=== PATIENT | male | born 1955 | race Caucasian/White ===

== ENCOUNTER 2017-05-15 16:15 | Emergency (ER) | payer BC ==
[2017-05-15 16:25] VITALS: BP 133/86
[2017-05-15] MEDS ORDERED: Sodium Chloride 0.9% 10 ML Syringe FLUSH PRN (16:33)
[2017-05-15] MEDS ORDERED: Clopidogrel 75 MG Tab PO ONE (16:51)
--- NOTE | 2017-05-15 16:51 | EDM.PDOC ---
ED HPI GENERAL MEDICAL PROBLEM - General Chief Complaint: Chest Pain Stated Complaint: CHEST PAIN SHOOTING PAIN IN L ARM Time Seen by Provider: 05/15/17 16:33 Source of Information: Reports: Patient, RN Notes Reviewed - History of Present Illness INITIAL COMMENTS - FREE TEXT/NARRATIVE: 61-year-old male comes in with symptoms of intermittent chest discomfort last evening and occasionally for the past 2-3 weeks. His had less energy than usual for the last several weeks. He also apparently has been very busy with work, "under a lot of stress". He does have history of quadruple bypass about 2 years ago. He gets his meds mail-order. He states that with his last order either did not get his Plavix or did not get a full supply believes he has been off Plavix for about a week to 10 days. He was also off his blood pressure medicine for a short time but is been back on that now for at least a few days. He has no chest discomfort at this time. He really does not want to be here. It appears that his likely made him come. Left Chest Pain Score (Numeric/FACES): 2 - Related Data Allergies Allergy/AdvReac Type Severity Reaction Status Date / Time No Known Allergies Allergy Verified 05/15/17 16:25 Home Meds: Home Meds Allopurinol [Zyloprim] 100 mg PO QPM 01/16/15 [History] Allopurinol [Zyloprim] 300 mg PO QAM 01/16/15 [History] Aspirin 81 mg PO DAILY 01/16/15 [History] PARoxetine HCl [Paxil] 30 mg PO DAILY 01/16/15 [History] metFORMIN [Glucophage] 1,000 mg PO BID 01/16/15 [History] Clopidogrel [Plavix] 1 tab PO DAILY 02/03/15 [History] Calcium Carbonate 600 mg PO DAILY 02/10/15 [History] Cinnamon Bark [Cinnamon] 1 cap PO DAILY 02/10/15 [History] Krill Oil 500 mg PO DAILY 02/10/15 [History] Lisinopril 5 mg PO DAILY 02/10/15 [History] Ubidecarenone [Co Q-10] 200 mg PO DAILY 02/10/15 [History] Vitamin B Complex [B Complex] 1 each PO DAILY 02/10/15 [History] Cholecalciferol (Vitamin D3) [Vitamin D] 5,000 unit PO DAILY 02/11/15 [History] Ginkgo Biloba 120 mg PO DAILY 02/11/15 [History] Iron 1 tab PO DAILY 02/11/15 [History] Lysine [L-Lysine] 500 mg PO DAILY 02/11/15 [History] Magnesium 200 mg PO DAILY 02/11/15 [History] Metoprolol Tartrate [Lopressor] 25 mg PO BID 02/11/15 [History] Multivitamin [Multivitamins] 1 each PO DAILY 02/11/15 [History] Red Yeast Rice 600 mg PO DAILY 02/11/15 [History] Taurine 1,000 mg PO DAILY 02/11/15 [History] Simvastatin [Zocor] 20 mg PO BEDTIME 03/28/15 [History] Clopidogrel [Plavix] 75 mg PO DAILY #10 tablet 05/15/17 [Rx] Past Medical History Cardiovascular History: Reports: High Cholesterol, Hypertension, [place] Genitourinary History: Reports: Other (See Below) Other Genitourinary History: "sluggish kidney" Musculoskeletal History: Reports: Fracture Other Musculoskeletal History: right wrist fracture Psychiatric History: Reports: Anxiety, Depression Endocrine/Metabolic History: Reports: Diabetes, Type II Dermatologic History: Reports: Eczema - Past Surgical History Cardiovascular Surgical History: Reports: Coronary Artery Bypass Social & Family History - Family History Cardiac: Reports: Hypertension, [place] - Tobacco Use Smoking Status *Q: Never Smoker Years of Tobacco use: 15 Used Tobacco, but Quit: Yes Month Tobacco Last Used: 30 years ago Second Hand Smoke Exposure: No - Caffeine Use Caffeine Use: Reports: Coffee - Alcohol Use Days Per Week of Alcohol Use: 0 - Recreational Drug Use Recreational Drug Use: No ED ROS GENERAL - Review of Systems Review Of Systems: See Below Constitutional: Denies: Fever, Chills, Diaphoresis HEENT: Reports: No Symptoms Respiratory: Reports: Shortness of Breath (with exertion) Cardiovascular: Reports: Chest Pain (last evening and intermittently for the last 2-3 weeks, on), Dyspnea on Exertion, Lightheadedness (occasional). Denies : Palpitations GI/Abdominal: Denies: Abdominal Pain, Nausea, Vomiting Musculoskeletal: Denies: Neck Pain, Shoulder Pain, Arm Pain, Back Pain Skin: Reports: No Symptoms Neurological: Reports: Dizziness. Denies: Trouble Speaking, Difficulty Walking , Weakness ED EXAM, GENERAL - Physical Exam Exam: See Below General Appearance: Alert, No Apparent Distress Eye Exam: Bilateral Eye: PERRL Throat/Mouth: Normal Inspection, Normal Oropharynx Head: Atraumatic. No: Facial Swelling Neck: Supple, Full Range of Motion, Other (no JVD) Respiratory/Chest: No Respiratory Distress, Lungs Clear, Normal Breath Sounds, Other (he does have some tenderness of the left mid lateral student sternal border which he states he does have an has had chronically since his open heart surgery) Cardiovascular: Regular Rate, Rhythm GI/Abdominal: Soft, Non-Tender Extremities: Normal Inspection, Normal Range of Motion. No: Pedal Edema, Leg Pain, Increased Warmth, Redness Neurological: Alert, Oriented, No Motor/Sensory Deficits Skin Exam: Warm, Dry, Normal Color EKG INTERPRETATION EKG Date: 05/15/17 Rhythm: NSR Rate (Beats/Min): 72 [place]: Normal P-Wave: Present QRS: Other (Q waves inferior leads) ST-T: Normal Course - Vital Signs Last Recorded V/S: Last Vital Signs Temp 96.9 F 05/15/17 16:23 Pulse 75 05/15/17 16:23 Resp 16 05/15/17 16:23 BP 133/86 05/15/17 16:23 Pulse Ox 95 05/15/17 16:23 - Orders/Labs/Meds Orders: Active Orders 24 hr Category Date Time Status EKG 12 Lead [EKG Documentation Completion] [RC] STAT Care 05/15/17 16:34 Active Peripheral IV Care [RC] . DIRECTED Care 05/15/17 16:35 Active Chest 1V Frontal [CR] Stat Exams 05/15/17 16:34 Taken Peripheral IV Insertion Adult [OM.PC] Stat Oth 05/15/17 16:34 Ordered Labs: Laboratory Tests 05/15/17 05/15/17 Range/Units 16:45 16:45 WBC 6.93 (4.23-9.07) K/mm3 RBC 4.37 L (4.63-6.08) M/mm3 Hgb 12.9 L (13.7-17.5) gm/L Hct 38.0 L (40.1-51.0) % MCV 87.0 (79.0-92.2) fl MCH 29.5 (25.7-32.2) pg MCHC 33.9 (32.2-35.5) g/dl RDW Std Deviation 43.3 (35.1-43.9) fL Plt Count 221 (163-337) K/mm3 MPV 11.1 (9.4-12.3) fl Neut % (Auto) 58.7 (34.0-67.9) % Lymph % (Auto) 28.0 (21.8-53.1) % [place] % (Auto) 11.3 (5.3-12.2) % Eos % (Auto) 1.6 (0.8-7.0) Baso % (Auto) 0.3 (0.1-1.2) % Neut # (Auto) 4.07 (1.78-5.38) K/mm3 Lymph # (Auto) 1.94 (1.32-3.57) K/mm3 [place] # (Auto) 0.78 (0.30-0.82) K/mm3 Eos # (Auto) 0.11 (0.04-0.54) K/mm3 Baso # (Auto) 0.02 (0.01-0.08) K/mm3 Sodium 141 (136-145) mEq/L Potassium 3.9 (3.5-5.1) mEq/L Chloride 104 (98-107) mEq/L Carbon Dioxide 27 (21-32) mEq/L Anion Gap 13.9 (5-15) BUN 10 (7-18) mg/dL Creatinine 0.9 (0.7-1.3) mg/dL Est Cr Clr Drug Dosing 77.78 mL/min Estimated GFR (MDRD) > 60 (>60) mL/min BUN/Creatinine Ratio 11.1 L (14-18) Glucose 110 (80-115) mg/dL Calcium 9.6 (8.5-10.1) mg/dL Total Bilirubin 0.5 (0.2-1.0) mg/dL AST 34 (15-37) U/L ALT 79 H (16-63) U/L Alkaline Phosphatase 93 (46-116) U/L Troponin I < 0.017 (0.00-0.056) ng/mL Total Protein 8.0 (6.4-8.2) g/dl Albumin 4.1 (3.4-5.0) g/dl Globulin 3.9 gm/dL Albumin/Globulin Ratio 1.1 (1-2) Meds: Medications Discontinued Medications Generic Name Dose Route Start Last Admin Trade Name Ernesto PRN Reason Stop Dose Admin Clopidogrel Bisulfate 75 mg 05/15/17 16:51 05/15/17 17:01 Plavix PO 05/15/17 16:52 75 mg ONETIME ONE Administration Sodium Chloride 10 ml 05/15/17 16:33 05/15/17 17:01 Saline Flush FLUSH 10 ml ASDIRECTED PRN Administration Keep Vein Open - Re-Assessments/Exams Free Text/Narrative Re-Assessment/Exam: 05/15/17 19:52 troponin came back normal. Labs otherwise normal. Chest x-ray looked good. Pain pain-free while here in the ED. I Suggested that we hold him for 2 or 3 hour repeat troponin check. However he was very anxious to leave, wanted to go home in a major way, not willing to stay for repeat troponin. I did write a prescription to get him back on the Plavix. We did give a dose of Plavix while awaiting lab work. Remained in sinus rhythm, no ectopy. Vitals remained stable. Discharge instructions as documented Departure - Departure Time of Disposition: 18:13 Disposition: Home, Self-Care 01 Condition: Fair Clinical Impression: Atypical chest pain Prescriptions: Clopidogrel [Plavix] 75 mg PO DAILY #10 tablet Instructions: Chest Wall Pain, [id number] Referrals: Edwina Johnson MD [Primary Care Provider] - Forms: ED Department Discharge Additional Instructions: get back on the Plavix 75 mg daily as previously prescribed, continue daily baby aspirin and other medications as prescribed, [facility] tomorrow morning, try get a an appointment to see safety engineer as soon as possible. Return to ED if symptoms worsening in any way. - My Orders Last 24 Hours: My Active Orders 05/15/17 16:34 EKG 12 Lead [EKG Documentation Completion] [RC] STAT Chest 1V Frontal [CR] Stat Peripheral IV Insertion Adult [OM.PC] Stat 05/15/17 16:35 Peripheral IV Care [RC] . DIRECTED - Assessment/Plan Last 24 Hours: My Active Orders 05/15/17 16:34 EKG 12 Lead [EKG Documentation Completion] [RC] STAT Chest 1V Frontal [CR] Stat Peripheral IV Insertion Adult [OM.PC] Stat 05/15/17 16:35 Peripheral IV Care [RC] . DIRECTED
--- NOTE | 2017-05-16 12:54 | CR ---
Chest: Portable view of the chest was obtained. Comparison: Previous chest x-ray of 05/31/16. Heart size appears within normal limits for portable technique. Mild tortuosity of the thoracic aorta is seen. Sternotomy is noted. Lungs are clear. Bony structures are grossly intact. Impression: 1. Nothing acute is identified on portable chest x-ray. Diagnostic code #2
== END 2017-05-15 18:24 | disposition home or self-care (01) ==
LOC: JD.ED 16:15
DX: R07.89 Other chest pain (principal); E78.00 Pure hypercholesterolemia, unspecified; I10 Essential (primary) hypertension; E11.9 Type 2 diabetes mellitus without complications; Z79.84 Long term (current) use of oral hypoglycemic drugs; Z79.899 Other long term (current) drug therapy
CPT/HCPCS: 36415; 71010; 80053; 84484; 85025; 93005; 99285; A9270; J7050; 93010

== ENCOUNTER 2018-10-24 11:29 | Emergency (ER) | payer BC ==
[2018-10-24 11:41] VITALS: BP 125/81
[2018-10-24] MEDS ORDERED: Sodium Chloride 0.9% 1,000 ML IV ONE (12:14)
[2018-10-24] MEDS ORDERED: Ketorolac 30 MG/ML SDV IVPUSH ONE (12:15)
--- NOTE | 2018-10-24 12:20 | EDM.PDOC ---
ED HPI GENERAL MEDICAL PROBLEM - General Chief Complaint: Flank Pain Stated Complaint: KIDNEY PAIN Time Seen by Provider: 10/24/18 11:38 Source of Information: Reports: Patient, Family History Limitations: Reports: No Limitations - History of Present Illness INITIAL COMMENTS - FREE TEXT/NARRATIVE: Pt 63 yo M who comes in today with L flank pain x1.5 hr, radiates to groin area. He states the pain started 3 days ago, but was just having "flare ups" that would last 15-20minutes. Today is the longest his pain has lasted. He tried ibuprofen at home with no relief. He also c/o nausea, LLQ abdominal pain, decreased appetite, distension (chronic per pt). He denies F/C, vomiting, diarrhea, dysuria, hematuria, constipation. He thinks he may have had pain similar to this in the past when he had renal stones back in 2016, but he "doesn 't remember". He states the stones passed on their own, he doesn't remember needing any surgical intervention. PCP is Dr. Edwina Johnson. Treatments ACCOUNTING MANAGER CPA: Reports: NSAIDS Other Treatments ACCOUNTING MANAGER CPA: 1100 Left Flank Pain Score (Numeric/FACES): 10 - Related Data Allergies Allergy/AdvReac Type Severity Reaction Status Date / Time No Known Allergies Allergy Verified 10/24/18 11:36 Home Meds: Home Meds Allopurinol [Zyloprim] 100 mg PO QPM 01/16/15 [History] Allopurinol [Zyloprim] 300 mg PO QAM 01/16/15 [History] Aspirin 81 mg PO DAILY 01/16/15 [History] PARoxetine HCl [Paxil] 30 mg PO DAILY 01/16/15 [History] metFORMIN [Glucophage] 1,000 mg PO BID 01/16/15 [History] Calcium Carbonate 600 mg PO DAILY 02/10/15 [History] Cinnamon Bark [Cinnamon] 1 cap PO DAILY 02/10/15 [History] Lisinopril 5 mg PO DAILY 02/10/15 [History] Vitamin B Complex [B Complex] 1 each PO DAILY 02/10/15 [History] Cholecalciferol (Vitamin D3) [Vitamin D] 5,000 unit PO DAILY 02/11/15 [History] Metoprolol Tartrate [Lopressor] 25 mg PO BID 02/11/15 [History] Multivitamin [Multivitamins] 1 each PO DAILY 02/11/15 [History] Past Medical History HEENT History: Reports: Impaired Vision Cardiovascular History: Reports: High Cholesterol, Hypertension, [place] Respiratory History: Reports: None Gastrointestinal History: Reports: Cholelithiasis Genitourinary History: Reports: Other (See Below) Other Genitourinary History: "sluggish kidney" Musculoskeletal History: Reports: Fracture Other Musculoskeletal History: right wrist fracture Neurological History: Reports: None Psychiatric History: Reports: Anxiety, Depression Endocrine/Metabolic History: Reports: Diabetes, Type II Hematologic History: Reports: None Immunologic History: Reports: None Oncologic (Cancer) History: Reports: None Dermatologic History: Reports: Eczema - Infectious Disease History Infectious Disease History: Reports: None - Past Surgical History Cardiovascular Surgical History: Reports: Coronary Artery Bypass Respiratory Surgical History: Reports: None GI Surgical History: Reports: Cholecystectomy Social & Family History - Family History Family Medical History: Noncontributory Cardiac: Reports: Hypertension, [place] Respiratory: Reports: None GI: Reports: None : Reports: None OBGYN: Reports: None Musculoskeletal: Reports: None Neurological: Reports: None Endocrine/Metabolic: Reports: None Hematologic: Reports: None Immunologic: Reports: None Oncologic: Reports: None - Tobacco Use Smoking Status *Q: Never Smoker - Caffeine Use Caffeine Use: Reports: Coffee - Recreational Drug Use Recreational Drug Use: No ED ROS GENERAL - Review of Systems Review Of Systems: See Below Constitutional: Reports: Decreased Appetite. Denies: Fever, Chills HEENT: Reports: No Symptoms Respiratory: Reports: No Symptoms Cardiovascular: Reports: No Symptoms Endocrine: Reports: No Symptoms GI/Abdominal: Reports: Abdominal Pain (LLQ), Decreased Appetite, Distension ( chronic per pt), Nausea. Denies: Bloody Stool, Constipation, Diarrhea ("soft stool"), Vomiting : Reports: Flank Pain (L side). Denies: Dysuria, Frequency, Hematuria, Incontinence Musculoskeletal: Reports: No Symptoms Skin: Reports: No Symptoms Neurological: Reports: No Symptoms Psychiatric: Reports: No Symptoms Hematologic/Lymphatic: Reports: No Symptoms Immunologic: Reports: No Symptoms ED EXAM, RENAL/ - Physical Exam Exam: See Below Exam Limited By: No Limitations General Appearance: Alert, Mild Distress Eye Exam: Bilateral Eye: EOMI, Normal Inspection, PERRL Ears: Normal External Exam, Normal Canal, Hearing Grossly Normal Nose: Normal Inspection, Normal Mucosa, No Blood Throat/Mouth: Normal Inspection, Normal Lips, Normal Teeth, Normal Gums, Normal Oropharynx, Normal Voice, No Airway Compromise Head: Atraumatic, Normocephalic Neck: Normal Inspection, Supple, Non-Tender, Full Range of Motion Respiratory/Chest: No Respiratory Distress, Lungs Clear, Normal Breath Sounds, No Accessory Muscle Use, Chest Non-Tender Cardiovascular: Normal Peripheral Pulses, Regular Rate, Rhythm, No Edema, No Gallop, No JVD, No Murmur, No Rub GI/Abdominal: Soft, Non-Tender, Pelvis Stable, Distended, Abnormal Bowel Sounds (hyperactive) (Male) Exam: Deferred Rectal (Males) Exam: Deferred Back Exam: Normal Inspection Extremities: Normal Inspection, Normal Range of Motion, Non-Tender, Normal Capillary Refill, No Pedal Edema Psychiatric: Normal Affect, Normal Mood Skin Exam: Warm, Dry, Intact, Normal Color, No Rash Course - Vital Signs Last Recorded V/S: Last Vital Signs Temp 97.3 F 10/24/18 11:39 Pulse 51 L 10/24/18 11:39 Resp 16 10/24/18 11:39 BP 125/81 10/24/18 11:39 Pulse Ox 99 10/24/18 11:39 - Orders/Labs/Meds Labs: Laboratory Tests 10/24/18 10/24/18 10/24/18 Range/Units 12:00 12:00 12:15 WBC 5.69 (4.23-9.07) K/mm3 RBC 4.49 L (4.63-6.08) M/mm3 Hgb 12.8 L (13.7-17.5) gm/L Hct 38.1 L (40.1-51.0) % MCV 84.9 (79.0-92.2) fl MCH 28.5 (25.7-32.2) pg MCHC 33.6 (32.2-35.5) g/dl RDW Std Deviation 41.8 (35.1-43.9) fL Plt Count 181 (163-337) K/mm3 MPV 11.3 (9.4-12.3) fl Neut % (Auto) 68.6 H (34.0-67.9) % Lymph % (Auto) 23.6 (21.8-53.1) % [place] % (Auto) 6.3 (5.3-12.2) % Eos % (Auto) 1.1 (0.8-7.0) Baso % (Auto) 0.2 (0.1-1.2) % Neut # (Auto) 3.91 (1.78-5.38) K/mm3 Lymph # (Auto) 1.34 (1.32-3.57) K/mm3 [place] # (Auto) 0.36 (0.30-0.82) K/mm3 Eos # (Auto) 0.06 (0.04-0.54) K/mm3 Baso # (Auto) 0.01 (0.01-0.08) K/mm3 Sodium 138 (136-145) mEq/L Potassium 4.7 (3.5-5.1) mEq/L Chloride 104 (98-107) mEq/L Carbon Dioxide 23 (21-32) mEq/L Anion Gap 15.7 H (5-15) BUN 17 (7-18) mg/dL Creatinine 1.1 (0.7-1.3) mg/dL Est Cr Clr Drug Dosing 62.03 mL/min Estimated GFR (MDRD) > 60 (>60) mL/min BUN/Creatinine Ratio 15.5 (14-18) Glucose 203 H (80-115) mg/dL Calcium 9.0 (8.5-10.1) mg/dL Total Bilirubin 0.4 (0.2-1.0) mg/dL AST 26 (15-37) U/L ALT 52 (16-63) U/L Alkaline Phosphatase 86 (46-116) U/L C-Reactive Protein < 0.2 (<1.0) mg/dL Total Protein 7.6 (6.4-8.2) g/dl Albumin 3.8 (3.4-5.0) g/dl Globulin 3.8 gm/dL Albumin/Globulin Ratio 1.0 (1-2) Urine Color Yellow (Yellow) Urine Appearance Clear (Clear) Urine pH 5.5 (5.0-8.0) Ur Specific [place] > or = 1.030 (1.005-1.030) Urine Protein 2+ H (Negative) Urine Glucose (UA) Negative (Negative) Urine Ketones Negative (Negative) Urine Occult Blood 3+ H (Negative) Urine Nitrite Negative (Negative) Urine Bilirubin Negative (Negative) Urine Urobilinogen 0.2 (0.2-1.0) Ur Leukocyte Esterase Negative (Negative) Urine RBC >100 H (0-5) /hpf Urine WBC 0-5 (0-5) /hpf Ur Epithelial Cells 0-5 (0-5) /hpf Urine Bacteria Few (FEW) /hpf Urine Mucus Few (FEW) /hpf Meds: Medications Discontinued Medications Generic Name Dose Route Start Last Admin Trade Name Freq PRN Reason Stop Dose Admin Hydromorphone HCl 0.5 mg 10/24/18 13:22 10/24/18 13:25 Dilaudid IVPUSH 10/24/18 13:23 0.5 mg ONETIME ONE Administration Hydromorphone HCl 0.5 mg 10/24/18 15:11 10/24/18 15:13 Dilaudid IVPUSH 10/24/18 15:12 0.5 mg ONETIME ONE Administration Sodium Chloride 1,000 mls @ 999 mls/hr 10/24/18 12:14 10/24/18 12:21 Normal Saline IV 10/24/18 13:14 999 mls/hr ONETIME ONE Administration Ketorolac Tromethamine 30 mg 10/24/18 12:15 10/24/18 12:20 Toradol IVPUSH 10/24/18 12:16 30 mg ONETIME ONE Administration - Re-Assessments/Exams Free Text/Narrative Re-Assessment/Exam: 10/24/18 12:20 I have ordered CBC, CMP, CRP, UA, KUB 10/24/18 13:18 CBC unimpressive except for slight anemia, Hgb 12.8. CMP shows Agap 15.7, Glu 203. CRP <0.2 UA shows 3+ occult blood. KUB reviewed by Dr. Estrada and myself, there does seem to be a possible stone in the LLQ. Will await formal radiology report. 10/24/18 15:07 CT formal report back and does show kidney stone: 1. Mildly prominent left ureter caused by an obstructing stone within the distal left ureter projecting within the bladder measuring 4.8 mm. This is very close to passing into the bladder. 2. One or 2 small nonobstructing calculi within the right kidney. 3. Other incidental findings. Departure - Departure Time of Disposition: 15:08 Disposition: Home, Self-Care 01 Condition: Fair Clinical Impression: Renal stone - Discharge Information *PRESCRIPTION DRUG MONITORING PROGRAM REVIEWED*: Not Applicable *COPY OF PRESCRIPTION DRUG MONITORING REPORT IN PATIENT WILMAR: Not Applicable Instructions: Kidney Stones, [id number] Referrals: Edwina Johnson MD [Primary Care Provider] - Forms: ED Department Discharge Additional Instructions: You were seen in the ED today for back pain. Your lab work was unremarkable, but your urine analysis did show some blood and the Xray and CT abdomen confirmed that you do have a kidney stone measuring 4.8cm. This may or may not pass on its own. It is recommended you follow up with your Primary care provider on Monday and follow up with urologist- we will set up appointment for urologist for you. You will be sent home with pain medication and strainer in the meantime. Do not drive or operate any machinery while taking this medication as it does cause motor and cognitive impairment. Please return to ED if new or worsening symptoms.
[2018-10-24] MEDS ORDERED: HYDROmorphone 1 MG/ML Syringe IVPUSH ONE ×2 (13:22→15:11)
--- NOTE | 2018-10-24 14:17 | CR ---
Abdomen: Supine view of the abdomen was obtained. Comparison: No previous study. Bowel gas pattern is normal. Surgical clips are seen from prior cholecystectomy. Calcifications are noted within the left pelvis most likely due to phleboliths. Minimal degenerative change is noted within the spine. Additional surgical clips are seen within the left upper abdomen. Impression: 1. Incidental findings. Diagnostic code #2
--- NOTE | 2018-10-24 14:59 | CT ---
CT abdomen and pelvis Technique: Multiple axial sections were obtained from above the dome of the diaphragm inferiorly through the pubic symphysis. Intravenous and oral contrast was not utilized. Study has been performed as a ureteral stone protocol. Comparison: No prior CT abdomen or pelvis exam is available. Findings: One and possibly 2 small nonobstructing calculi are seen within the right kidney measuring less than 5 mm. Left kidney shows no abnormal calcifications. Left ureter is dilated down to the UVJ. Calcification is projected within the bladder at the UVJ measuring about 4.8 mm compatible with obstructing stone which is very close to passing into the bladder. No other abnormal calcifications are seen. Visualized lung bases shows nothing acute. Noncontrast appearance of the liver shows an incidental cyst within the dome of the right lobe measuring 3.0 cm. Spleen appears within normal limits. Adrenal glands show no nodule. Pancreas is unremarkable. Surgical clips are seen from prior cholecystectomy. Aorta shows no aneurysm. Atherosclerotic calcification is seen within the aorta and iliac vessels. No retroperitoneal adenopathy or mesenteric abnormalities are seen. No pelvic mass or adenopathy is seen. Appendix not visualized with certainty. No free fluid or inflammatory changes seen. Bone window settings were reviewed which appear within normal limits for the patient's age. Impression: 1. Mildly prominent left ureter caused by an obstructing stone within the distal left ureter projecting within the bladder measuring 4.8 mm. This is very close to passing into the bladder. 2. One or 2 small nonobstructing calculi within the right kidney. 3. Other incidental findings. Diagnostic code #3
== END 2018-10-24 15:56 | disposition home or self-care (01) ==
LOC: JD.ED 11:29
DX: N20.2 Calculus of kidney with calculus of ureter (principal); E78.00 Pure hypercholesterolemia, unspecified; I10 Essential (primary) hypertension; I25.2 Old myocardial infarction; E11.9 Type 2 diabetes mellitus without complications; F41.9 Anxiety disorder, unspecified; F32.9 Major depressive disorder, single episode, unspecified; Z79.899 Other long term (current) drug therapy; Z79.84 Long term (current) use of oral hypoglycemic drugs
CPT/HCPCS: 36415; 74018; 74176; 80053; 81001; 85025; 86140; 96361; 96374; 96375; 96376; 99284; J1170; J1885; J7040

== ENCOUNTER 2021-01-04 13:28 | Emergency (ER) | payer MEDICARE, OTHER ==
[2021-01-04] MEDS ORDERED: Sodium Chloride 0.9% 1,000 ML IV ONE (13:52)
[2021-01-04] MEDS ORDERED: HYDROmorphone 0.5 MG/0.5 ML Syringe IVPUSH ONE (13:52)
[2021-01-04] MEDS ORDERED: Ondansetron 4 MG/2 ML SDV IVPUSH ONE (13:52)
--- NOTE | 2021-01-04 13:53 | EDM.PDOC ---
ED HPI GENERAL MEDICAL PROBLEM - General Chief Complaint: Flank Pain Stated Complaint: KIDNEY STONE Time Seen by Provider: 01/04/21 13:43 Source of Information: Reports: Patient History Limitations: Reports: No Limitations, Other (ED vital signs reveal a temp of 96.2, pulse of 65, respiratory rate of 20, blood pressure 117/69, pulse ox 95% on room air.) - History of Present Illness INITIAL COMMENTS - FREE TEXT/NARRATIVE: 65-year-old male presents the emergency department today with complaints of right flank pain. Patient states he does have a history of kidney stones in the past and this feels similar to kidney stone. He states he was seen by his primary care provider, Dr. Edwina Johnson, in the clinic on Monday and had an MRI done which showed a 1.5 cm stone. At that time he was not having much pain so he was not prescribed any medications. He states he woke this morning with severe right flank pain which wraps around his abdomen and radiates into his right scrotum. He denies any urinary symptoms. He denies any hesitancy and he denies any mandeep red blood noted in his urine. He states he has had nausea and dry heaves which started this morning. He denies any fever or chills. He denies any headache cough or shortness of breath. He denies any diarrhea. - Related Data Allergies Allergy/AdvReac Type Severity Reaction Status Date / Time No Known Allergies Allergy Verified 10/24/18 11:36 Home Meds: Home Meds Allopurinol [Zyloprim] 100 mg PO QPM 01/16/15 [History] Allopurinol [Zyloprim] 300 mg PO QAM 01/16/15 [History] Aspirin 81 mg PO DAILY 01/16/15 [History] PARoxetine HCL [Paxil] 30 mg PO DAILY 01/16/15 [History] metFORMIN [Glucophage] 1,000 mg PO BID 01/16/15 [History] Calcium Carbonate 600 mg PO DAILY 02/10/15 [History] Cinnamon Bark [Cinnamon] 1 cap PO DAILY 02/10/15 [History] Lisinopril 5 mg PO DAILY 02/10/15 [History] Vitamin B Complex [B Complex] 1 each PO DAILY 02/10/15 [History] Cholecalciferol (Vitamin D3) [Vitamin D] 5,000 unit PO DAILY 02/11/15 [History] Metoprolol Tartrate [Lopressor] 25 mg PO BID 02/11/15 [History] Multivitamin [Multivitamins] 1 each PO DAILY 02/11/15 [History] Sulfamethoxazole/Trimethoprim [Bactrim Ds Tablet] 1 each PO BID #20 tablet 01/04/21 [Rx] Past Medical History HEENT History: Reports: Impaired Vision Cardiovascular History: Reports: High Cholesterol, Hypertension, [place] Respiratory History: Reports: None Gastrointestinal History: Reports: Cholelithiasis Genitourinary History: Reports: Other (See Below) Other Genitourinary History: "sluggish kidney" Musculoskeletal History: Reports: Fracture Other Musculoskeletal History: right wrist fracture Neurological History: Reports: None Psychiatric History: Reports: Anxiety, Depression Endocrine/Metabolic History: Reports: Diabetes, Type II Hematologic History: Reports: None Immunologic History: Reports: None Oncologic (Cancer) History: Reports: None Dermatologic History: Reports: Eczema - Infectious Disease History Infectious Disease History: Reports: None - Past Surgical History Cardiovascular Surgical History: Reports: Coronary Artery Bypass Respiratory Surgical History: Reports: None GI Surgical History: Reports: Cholecystectomy Social & Family History - Family History Family Medical History: No Pertinent Family History Cardiac: Reports: Hypertension, [place] Respiratory: Reports: None GI: Reports: None : Reports: None OBGYN: Reports: None Musculoskeletal: Reports: None Neurological: Reports: None Endocrine/Metabolic: Reports: None Hematologic: Reports: None Immunologic: Reports: None Oncologic: Reports: None - Caffeine Use Caffeine Use: Reports: Coffee ED ROS GENERAL - Review of Systems Review Of Systems: Comprehensive ROS is negative, except as noted in HPI. ED EXAM, RENAL/ - Physical Exam Exam: See Below Exam Limited By: No Limitations General Appearance: Alert, WD/WN, Moderate Distress Ears: Normal External Exam, Hearing Grossly Normal Nose: Normal Inspection Throat/Mouth: Normal Inspection, Normal Lips, Normal Voice, No Airway Compromise Head: Atraumatic Neck: Normal Inspection, Supple Respiratory/Chest: No Respiratory Distress, Lungs Clear, Normal Breath Sounds, No Accessory Muscle Use, Chest Non-Tender Cardiovascular: Normal Peripheral Pulses, Regular Rate, Rhythm GI/Abdominal: Normal Bowel Sounds, Soft, Tender (Right upper and lower quadrant) (Male) Exam: Deferred Rectal (Males) Exam: Deferred Back Exam: Normal Inspection Extremities: Normal Inspection Neurological: Alert, Oriented, Normal Cognition Psychiatric: Normal Affect, Normal Mood Skin Exam: Warm, Intact, No Rash, Diaphoretic, Pallor Lymphatic: No Adenopathy Course - Vital Signs Text/Narrative:: Patient presents with right flank pain that was diagnosed as a 1.5 cm stone on Monday by his primary care provider in the clinic. States that the pain at that time was not that severe however he woke this morning and pain is very severe. He presents to the ER with complaints of right flank pain which wraps around his right abdomen and radiates into his right scrotum. States he has had nausea and dry heaves however no vomiting. Patient is in a significant amount of distress and is diaphoretic and slightly pale. He is requesting pain medication. I have ordered labs including a CBC, CMP, urinalysis with micro and culture if warranted. He will also receive a CT of the abdomen and pelvis without contrast stone protocol. I have also ordered for him to receive 1 L of normal saline, Dilaudid and Zofran. Last Recorded V/S: Last Vital Signs Temp 96.6 F L 01/04/21 14:15 Pulse 65 01/04/21 13:42 Resp 20 01/04/21 13:42 BP 117/69 01/04/21 13:42 Pulse Ox 95 01/04/21 13:42 - Orders/Labs/Meds Labs: Laboratory Tests 01/04/21 01/04/21 01/04/21 Range/Units 13:45 13:45 13:52 WBC 9.15 H (4.23-9.07) K/mm3 RBC 4.34 L (4.63-6.08) M/mm3 Hgb 12.4 L (13.7-17.5) gm/dl Hct 37.3 L (40.1-51.0) % MCV 85.9 (79.0-92.2) fl MCH 28.6 (25.7-32.2) pg MCHC 33.2 (32.2-35.5) g/dl RDW Std Deviation 42.1 (35.1-43.9) fL Plt Count 186 (163-337) K/mm3 MPV 11.2 (9.4-12.3) fl Neut % (Auto) 63.6 (34.0-67.9) % Lymph % (Auto) 28.5 (21.8-53.1) % [place] % (Auto) 6.8 (5.3-12.2) % Eos % (Auto) 0.8 (0.8-7.0) Baso % (Auto) 0.1 (0.1-1.2) % Neut # (Auto) 5.82 H (1.78-5.38) K/mm3 Lymph # (Auto) 2.61 (1.32-3.57) K/mm3 Benzie # (Auto) 0.62 (0.30-0.82) K/mm3 Eos # (Auto) 0.07 (0.04-0.54) K/mm3 Baso # (Auto) 0.01 (0.01-0.08) K/mm3 Sodium 140 (136-145) mEq/L Potassium 4.1 (3.5-5.1) mEq/L Chloride 103 (98-107) mEq/L Carbon Dioxide 24 (21-32) mEq/L Anion Gap 17.1 H (5-15) BUN 18 (7-18) mg/dL Creatinine 1.3 (0.7-1.3) mg/dL Est Cr Clr Drug Dosing TNP Estimated GFR (MDRD) 55 (>60) mL/min BUN/Creatinine Ratio 13.8 L (14-18) Glucose 212 H (70-99) mg/dL Calcium 8.6 (8.5-10.1) mg/dL Magnesium 2.0 (1.8-2.4) mg/dL Total Bilirubin 0.5 (0.2-1.0) mg/dL AST 25 (15-37) U/L ALT 50 (16-63) U/L Alkaline Phosphatase 61 (46-116) U/L C-Reactive Protein <0.2 (<1.0) mg/dL Total Protein 7.4 (6.4-8.2) g/dl Albumin 4.0 (3.4-5.0) g/dl Globulin 3.4 gm/dL Albumin/Globulin Ratio 1.2 (1-2) Urine Color Yellow (Yellow) Urine Appearance Clear (Clear) Urine pH 6.0 (5.0-8.0) Ur Specific [place] > or = 1.030 (1.005-1.030) Urine Protein 3+ H (Negative) Urine Glucose (UA) Negative (Negative) Urine Ketones Negative (Negative) Urine Occult Blood 3+ H (Negative) Urine Nitrite Negative (Negative) Urine Bilirubin Negative (Negative) Urine Urobilinogen 0.2 (0.2-1.0) Ur Leukocyte Esterase Negative (Negative) U Hyaline Cast (Auto) 0-5 (0-5) /lpf Urine RBC >100 H (0-5) /hpf Urine WBC 0-5 (0-5) /hpf Ur Squamous Epith Cells 0-5 (0-5) /hpf Amorphous Sediment Few H (NOT SEEN) /hpf Urine Bacteria Moderate H (FEW) /hpf Urine Mucus Moderate H (FEW) /hpf Meds: Medications Discontinued Medications Generic Name Dose Route Start Last Admin Trade Name Freq PRN Reason Stop Dose Admin Hydromorphone HCl 0.5 mg 01/04/21 13:52 01/04/21 14:02 Hydromorphone 0.5 Mg/0.5 Ml Syringe IVPUSH 01/04/21 13:53 0.5 mg ONETIME ONE Administration Sodium Chloride 1,000 mls @ 999 mls/hr 01/04/21 13:52 01/04/21 14:01 Normal Saline IV 01/04/21 14:52 999 mls/hr ONETIME ONE Administration Ondansetron HCl 4 mg 01/04/21 13:52 01/04/21 14:02 Ondansetron 4 Mg/2 Ml Sdv IVPUSH 01/04/21 13:53 4 mg ONETIME ONE Administration - Re-Assessments/Exams Free Text/Narrative Re-Assessment/Exam: 01/04/21 14:29 Hematology reveals a WBC of 9.15, hemoglobin 12.4, hematocrit 37.3, platelet count 186, chemistry reveals a sodium of 140, potassium 4.1, carbon dioxide 24, anion gap 17.1, BUN 18, creatinine 1.3, glucose 212, magnesium 2.0, C-reactive protein less than 0.2, Urinalysis reveals 3+ protein, 3+ occult blood, greater than 100 RBC, few amorphous sediment, moderate urine bacteria, moderate urine mucus. 01/04/21 15:10 CT scan of the abdomen and pelvis radiologist impression: 1. 1.4 cm calcification within the right renal pelvis which is unchanged in position from previous CT scan. Patient states he has an appointment scheduled with , urologist in [facility], on afternoon. I will discharge to home with a prescription for Bactrim DS. I am slightly concerned that patient could develop a pyelonephritis as his white count is slightly elevated as well as having moderate bacteria in his urine. Patient states that his pain has completely resolved. We will let him receive the remainder of his IV fluids and then be discharged home. Departure - Departure Time of Disposition: 15:21 Disposition: Home, Self-Care 01 Clinical Impression: Renal stone - Discharge Information Prescriptions: Sulfamethoxazole/Trimethoprim [Bactrim Ds Tablet] 1 each PO BID #20 tablet Instructions: Kidney Stones, [id number] Referrals: Edwina Johnson MD [Primary Care Provider] - Forms: ED Department Discharge Additional Instructions: You were seen in the ED today with complaints of right flank pain. Labs were completed along with a ct scan which showed that you have a 1.4 cm stone in your right kidney. Your WBC was slightly elevated and there was bacteria in your urine. Due to these 2 things, I am going to treat with antibiotics as it is very possible you could develop a kidney infection. You will take Bactrim DS 1 tab twice daily for 10 days. I have sent a prescription for this antibiotic to your pharmacy. You stated you have an appointment set up with a urologist in 3 days time. Should your condition worsen or change, such as developing fever, chills, nausea, vomiting or your flank pain returns. You need to be reevaluated in the emergency department or by your primary care provider. Sepsis Event Note (ED) - Focused Exam Vital Signs: Vital Signs Temp Pulse Resp BP Pulse Ox 01/04/21 14:15 96.6 F L 01/04/21 13:42 96.2 F L 65 20 117/69 95
[2021-01-04 14:22] VITALS: BP 117/69; PULSE 65
--- NOTE | 2021-01-04 14:53 | CT ---
CT abdomen and pelvis Technique: Multiple axial sections were obtained from below the top of the liver inferiorly through the pubic symphysis. Intravenous and oral contrast was not utilized. Reconstructed coronal and sagittal images were obtained. Comparison: Prior CT abdomen and pelvis study of 01/01/21. Findings: Visualized lung bases show nothing acute. Dome of the right lobe of the liver contains a stable cyst. Liver is otherwise unremarkable. Spleen size is normal. Adrenal glands show no nodule. Pancreas is within normal limits. Surgical clips are seen from prior cholecystectomy. Abdominal aorta shows atherosclerotic change which continues into the iliac vessels with no aneurysmal dilatation. No retroperitoneal adenopathy or mesenteric abnormalities are seen. No pelvic mass or adenopathy is seen. Appendix is not visualized with certainty. Stable calcification is seen within the right renal pelvis which is unchanged in position. This finding measures approximately 1.4 cm. No ureteral dilatation or ureteral stone is seen. No bladder calculi are seen. Bone window settings were obtained which show minimal degenerative change scattered within the spine. No acute osseous abnormality is appreciated. Impression: 1. 1.4 cm calcification within the right renal pelvis which is unchanged in position from previous CT exam. 2. Other findings as noted above which are believed to be incidental. Diagnostic code #3
== END 2021-01-04 15:50 | disposition home or self-care (01) ==
LOC: JD.ED 13:28
DX: N20.0 Calculus of kidney (principal); E78.00 Pure hypercholesterolemia, unspecified; I10 Essential (primary) hypertension; I25.2 Old myocardial infarction; E11.9 Type 2 diabetes mellitus without complications; Z79.82 Long term (current) use of aspirin; Z79.899 Other long term (current) drug therapy; Z95.1 Presence of aortocoronary bypass graft
CPT/HCPCS: 36415; 74176; 80053; 81001; 83735; 85025; 86140; 96374; 96375; 99284; J1170; J2405; J7030

== ENCOUNTER 2021-01-17 10:14 | Emergency (ER) | payer MEDICARE, OTHER ==
[2021-01-17 10:26] VITALS: BP 160/91; PULSE 56
[2021-01-17] MEDS ORDERED: HYDROmorphone 1 MG/ML Syringe IVPUSH ONE (10:43)
[2021-01-17] MEDS ORDERED: Ondansetron 4 MG/2 ML SDV IVPUSH ONE (10:44)
[2021-01-17] MEDS ORDERED: Ketorolac 30 MG/ML SDV IVPUSH SCH (10:45)
[2021-01-17] MEDS ORDERED: Dextrose 5%-0.9% NaCl 1,000 ML IV SCH (10:45)
--- NOTE | 2021-01-17 10:50 | EDM.PDOC ---
ED HPI GENERAL MEDICAL PROBLEM - General Chief Complaint: Flank Pain Stated Complaint: KIDNEY PAIN Time Seen by Provider: 01/17/21 10:40 Source of Information: Reports: Patient History Limitations: Reports: No Limitations - History of Present Illness INITIAL COMMENTS - FREE TEXT/NARRATIVE: 65-year-old male presents to the ED with acute on status severe right flank pain rating down to the right groin. It is primarily in his right flank. He states it was there when he woke up around 0600 hrs. this morning. Associated diaphoresis, nausea without vomiting. Patient underwent lithotripsy for a 1.4 cm stone which was lodged in the right renal pelvis for the last several weeks. It has been giving him intermittent right flank pain and renal colic. He underwent lithotripsy on January 15 by urologist in [place] with stent placement. Has had pain since leaving the hospital but not near as severe as this morning. He has appreciated urine to be dark in color but no mandeep blood. Onset: Today, Sudden Onset Date: 01/17/21 Onset Time: 06:00 Duration: Hour(s):, Constant, Getting Worse Location: Reports: Abdomen (Pain is rating around the right hemiabdomen down to the groin. It is mostly in the right flank however.), Back (Right flank pain) Quality: Reports: Ache, Stabbing, Throbbing, Other (Strong colicky component to the pain.) Severity: Severe Improves with: Reports: None (10 out of 10.) Worsens with: Reports: None Context: Reports: Other (Spontaneous occurrence. Patient has a known large stone in the right renal pelvis which was treated with lithotripsy 2 days ago. Has a right ureteric stent placed. Suspect currently passing portions of the stone.). Denies: Activity, Exercise, Lifting, Sick Contact, Trauma Associated Symptoms: Reports: Loss of Appetite, Malaise, Nausea/Vomiting. Denies: Confusion, Cough, cough w sputum, Diaphoresis, Fever/Chills, Headaches, Rash, Seizure, Shortness of Breath, Syncope Treatments [employer]: Reports: Other (see below) (None.) Right Flank Pain Score (Numeric/FACES): 10 - Related Data Allergies Allergy/AdvReac Type Severity Reaction Status Date / Time No Known Allergies Allergy Verified 01/17/21 10:27 Home Meds: Home Meds Allopurinol [Zyloprim] 100 mg PO QPM 01/16/15 [History] Allopurinol [Zyloprim] 300 mg PO QAM 01/16/15 [History] Aspirin 81 mg PO DAILY 01/16/15 [History] PARoxetine HCL [Paxil] 30 mg PO DAILY 01/16/15 [History] metFORMIN [Glucophage] 1,000 mg PO BID 01/16/15 [History] Calcium Carbonate 600 mg PO DAILY 02/10/15 [History] Cinnamon Bark [Cinnamon] 1 cap PO DAILY 02/10/15 [History] Lisinopril 5 mg PO DAILY 02/10/15 [History] Vitamin B Complex [B Complex] 1 each PO DAILY 02/10/15 [History] Cholecalciferol (Vitamin D3) [Vitamin D] 5,000 unit PO DAILY 02/11/15 [History] Metoprolol Tartrate [Lopressor] 25 mg PO BID 02/11/15 [History] Multivitamin [Multivitamins] 1 each PO DAILY 02/11/15 [History] Sulfamethoxazole/Trimethoprim [Bactrim Ds Tablet] 1 each PO BID #20 tablet 01/04/21 [Rx] Ondansetron [Zofran] 4 mg BUCCAL Q6H PRN #8 tab 01/17/21 [Rx] oxyCODONE HCl/Acetaminophen [Percocet 5-325 mg Tablet] 1 - 2 each PO Q4H PRN #16 tablet 01/17/21 [Rx] Past Medical History HEENT History: Reports: Impaired Vision Cardiovascular History: Reports: High Cholesterol, Hypertension, [place] Respiratory History: Reports: None Gastrointestinal History: Reports: Cholelithiasis Genitourinary History: Reports: Renal Calculus, Other (See Below) Other Genitourinary History: "sluggish kidney" Musculoskeletal History: Reports: Fracture, Gout Other Musculoskeletal History: right wrist fracture Neurological History: Reports: None Psychiatric History: Reports: Anxiety, Depression Endocrine/Metabolic History: Reports: Diabetes, Type II (Currently controlled with diet and metformin 1 g twice daily.), Obesity/BMI 30+ Hematologic History: Reports: None Immunologic History: Reports: None Oncologic (Cancer) History: Reports: None Dermatologic History: Reports: Eczema - Infectious Disease History Infectious Disease History: Reports: None - Past Surgical History Cardiovascular Surgical History: Reports: Coronary Artery Bypass Other Cardiovascular Surgeries/Procedures: 4 VESSEL bYPASS JANUARY 18 2015 Respiratory Surgical History: Reports: None GI Surgical History: Reports: Cholecystectomy Male Surgical History: Reports: Lithotripsy ([facility]) Social & Family History - Family History Family Medical History: No Pertinent Family History Cardiac: Reports: Hypertension, [place] Respiratory: Reports: None GI: Reports: None : Reports: None OBGYN: Reports: None Musculoskeletal: Reports: None Neurological: Reports: None Endocrine/Metabolic: Reports: None Hematologic: Reports: None Immunologic: Reports: None Oncologic: Reports: None - Tobacco Use Tobacco Use Status *Q: Former Tobacco User Used Tobacco, but Quit: Yes Month/Year Tobacco Last Used: 35 yrs - Caffeine Use Caffeine Use: Reports: Coffee - Living Situation & Occupation Living situation: Reports: (Self-employed.) Occupation: Employed ED ROS GENERAL - Review of Systems Review Of Systems: See Below Constitutional: Reports: Malaise, Weakness, Fatigue, Decreased Appetite. Denies: Fever, Chills HEENT: Reports: Glasses Respiratory: Reports: No Symptoms Cardiovascular: Reports: No Symptoms Endocrine: Reports: Fatigue, High Glucose GI/Abdominal: Reports: Abdominal Pain (See history of present illness. Currently experiencing right renal colic.) : Reports: Flank Pain (Severe right side this morning.), Frequency, Other (Urine is dark in color with no mandeep blood.) Musculoskeletal: Reports: Back Pain, Joint Pain (He sips neck at times.) Skin: Reports: No Symptoms Neurological: Reports: No Symptoms ED EXAM, RENAL/ - Physical Exam Exam: See Below Exam Limited By: No Limitations General Appearance: Alert, WD/WN, Moderate Distress, Other (Temperature is 35.8. Heart rate 56 and sinus. Respiratory 16 with O2 sats of 98% room air. BP 160/91.) Eye Exam: Bilateral Eye: Normal Inspection (No blepharal pallor or scleral icterus.), PERRL Throat/Mouth: Normal Inspection, Normal Lips, Normal Teeth, Normal Oropharynx Head: Normocephalic, Sinus Tenderness Neck: Normal Inspection, Supple, Non-Tender, Full Range of Motion. No: Carotid Bruit, Lymphadenopathy (L), Lymphadenopathy (R) Respiratory/Chest: No Respiratory Distress, Lungs Clear, Normal Breath Sounds, No Accessory Muscle Use Cardiovascular: Normal Peripheral Pulses, Regular Rate, Rhythm, No Edema, No Gallop, No Murmur, No Rub GI/Abdominal: Normal Bowel Sounds, Soft, No Organomegaly, Pelvis Stable, Distended (Mildly tympany to percussion with mild aerophagia.), Guarding, Tender (Tender right lower quadrant with minimal guarding.), Other (No surgical scars .). No: Rigid, Rebound (Very slight right lower quadrant.) (Male) Exam: No Hernia Back Exam: Full Range of Motion, CVA Tenderness (R). No: CVA Tenderness (L) (Moderate.) Extremities: Normal Inspection, Normal Range of Motion, Non-Tender, No Pedal Edema Neurological: Alert, Oriented, CN II-XII Intact, Normal Cognition Psychiatric: Other Skin Exam: Warm (Good deal of pain at this time.), Dry, Intact, No Rash (Mild pallor.), Pallor Course - Vital Signs Last Recorded V/S: Last Vital Signs Temp 35.8 C L 01/17/21 10:24 Pulse 56 L 01/17/21 10:24 Resp 16 01/17/21 10:24 BP 160/91 H 01/17/21 10:24 Pulse Ox 98 01/17/21 10:24 - Orders/Labs/Meds Orders: Active Orders 24 hr Category Date Time Status URINALYSIS W/MICROSCOPIC [UA W/MICROSCOPIC] [URIN] Stat Lab 01/17/21 09:10 Ordered Dextrose 5%-0.9% NaCl [Dextrose 5%-Normal Saline] 1,000 Med 01/17/21 10:45 Active ml IV ASDIRECTED Ketorolac [Toradol] Med 01/17/21 10:45 Active 30 mg IVPUSH ONETIME Medication Orders Dextrose/Sodium Chloride (Dextrose 5%-Normal Saline) 1,000 mls @ 150 mls/hr IV ASDIRECTED CANDY Last Admin: 01/17/21 10:53 Dose: 150 mls/hr Documented by: CASH Ketorolac Tromethamine (Ketorolac 30 Mg/Ml Sdv) 30 mg IVPUSH ONETIME CANDY Last Admin: 01/17/21 10:54 Dose: 30 mg Documented by: CASH Meds: Medications Generic Name Dose Route Start Last Admin Trade Name Freq PRN Reason Stop Dose Admin Dextrose/Sodium Chloride 1,000 mls @ 150 mls/hr 01/17/21 10:45 01/17/21 10:53 Dextrose 5%-Normal Saline IV 150 mls/hr ASDIRECTED CANDY Administration Ketorolac Tromethamine 30 mg 01/17/21 10:45 01/17/21 10:54 Ketorolac 30 Mg/Ml Sdv IVPUSH 30 mg ONETIME CANDY Administration Discontinued Medications Generic Name Dose Route Start Last Admin Trade Name Ernesto PRN Reason Stop Dose Admin Hydromorphone HCl 1 mg 01/17/21 10:43 01/17/21 10:54 Hydromorphone 1 Mg/Ml Syringe IVPUSH 01/17/21 10:44 1 mg ONETIME ONE Administration Ondansetron HCl 4 mg 01/17/21 10:44 01/17/21 10:54 Ondansetron 4 Mg/2 Ml Sdv IVPUSH 01/17/21 10:45 4 mg ONETIME ONE Administration - Radiology Interpretation Free Text/Narrative:: 65-year-old male presents to the ED with acute onset of severe right flank pain. Patient had a known 1.4 cm stone which was body bothering him intermittently for the last several weeks in the right renal pelvis. He underwent lithotripsy by urologist I believe Dr. Emanuel --2 days ago January 15. He has a right renal stent in place. I believe he is probably passing fragments of this stone causing right flank pain today. Plan IV D5 normal saline at 150 mils per hour. Given Zofran 4 mg IV with Dilaudid 1 mg IV and Toradol 30 mg IV for acute pain relief. He will have a KUB and a urinalysis performed. - Re-Assessments/Exams Free Text/Narrative Re-Assessment/Exam: 01/17/21 11:12 KUB reveals the right pigtail stent to be in the appropriate position in the right renal pelvis and down into the urinary bladder. No obvious stones evident along the the stent itself. 01/17/21 11:22 patient has received good pain relief from IV Dilaudid and Toradol. I will watch him over the next 40 minutes and if he does okay we will discharge him to home. He will be sent home with Percocet tabs 5/325 mg strength to be taken 1 or 2 every 4-6 hours as needed for pain relief in combination with Zofran 4 mg under the tongue every 4-6 hours for nausea relief. 01/17/21 12:05 He is feeling well with no recurrence of right flank pain. I will write a discharge note for Percocet and Zofran as above. He will return to care if unable to keep down medication or pain is not controlled. Departure - Departure Time of Disposition: 12:05 Disposition: Home, Self-Care 01 Condition: Fair Clinical Impression: Renal colic on right side, Ureteric colic - Discharge Information *PRESCRIPTION DRUG MONITORING PROGRAM REVIEWED*: Not Applicable *COPY OF PRESCRIPTION DRUG MONITORING REPORT IN PATIENT [facility]ILMAR: Not Applicable Prescriptions: oxyCODONE HCl/Acetaminophen [Percocet 5-325 mg Tablet] 1 - 2 each PO Q4H PRN #16 tablet PRN Reason: Kidney stone relief. Ondansetron [Zofran] 4 mg BUCCAL Q6H PRN #8 tab PRN Reason: nausea or vomiting Instructions: Renal Colic Referrals: Edwina Johnson MD [Primary Care Provider] - Forms: ED Department Discharge Additional Instructions: Evaluation in the emergency room today in regards to acute onset of right flank pain worse than what you have experienced since lithotripsy procedure 2 days ago. You had a 1.4 cm stone in the right renal pelvis that was fragmented using ultrasonic waves or lithotripsy. Most of the stone has been fragmented and sucked out of the ureter by the urologist but there are always small fragments that remain that we have to pass over time. This is the reason for the stent to have been placed. The stent is in good position on x-ray today. You were treated with IV fluids and pain medication Dilaudid 1 mg and nausea medication Reglan 10 mg and anti-inflammatory medication Toradol 30 mg IV. Treatment at home is plenty of fluids. Percocet tabs 5 /325 mg strength likely need for 2 tablets every 4-6 hours as needed for pain relief. May use Motrin 600 mg every 6 hours to reduce pain and inflammation. Zofran under the tongue every 4-6 hours necessary for relief of nausea or vomiting. Return to medical care if pain is not controlled or unable to keep down medication. Otherwise plan on follow-up with urologist next Monday for stent removal. Sepsis Event Note (ED) - Evaluation Sepsis Screening Result: No Definite Risk - Focused Exam Vital Signs: Vital Signs Temp Pulse Resp BP Pulse Ox 01/17/21 10:24 35.8 C L 56 L 16 160/91 H 98 - My Orders Last 24 Hours: My Active Orders 01/17/21 09:10 URINALYSIS W/MICROSCOPIC [UA W/MICROSCOPIC] [URIN] Stat 01/17/21 10:45 Dextrose 5%-0.9% NaCl [Dextrose 5%-Normal Saline] 1,000 ml IV ASDIRECTED Ketorolac [Toradol] 30 mg IVPUSH ONETIME - Assessment/Plan Last 24 Hours: My Active Orders 01/17/21 09:10 URINALYSIS W/MICROSCOPIC [UA W/MICROSCOPIC] [URIN] Stat 01/17/21 10:45 Dextrose 5%-0.9% NaCl [Dextrose 5%-Normal Saline] 1,000 ml IV ASDIRECTED Ketorolac [Toradol] 30 mg IVPUSH ONETIME
--- NOTE | 2021-01-17 11:43 | CR ---
Abdomen: Supine view of the abdomen was obtained. Comparison: Prior abdominal x-ray of 10/24/18. Scattered gas within small bowel and colon is seen which appears within normal limits. Right-sided ureteral stent is seen which is believed to be within normal limits. Calcification is noted within the left pelvis which is most likely due to a phlebolith. Surgical clips are noted from prior cholecystectomy. Impression: 1. Right ureteral stent is noted. 2. Nothing acute is otherwise seen on supine abdominal x-ray. Diagnostic code #2
== END 2021-01-17 12:15 | disposition home or self-care (01) ==
LOC: JD.ED 10:14
DX: N23 Unspecified renal colic (principal); E78.00 Pure hypercholesterolemia, unspecified; I10 Essential (primary) hypertension; I25.2 Old myocardial infarction; E11.9 Type 2 diabetes mellitus without complications; E66.9 Obesity, unspecified; Z68.32 Body mass index [BMI] 32.0-32.9, adult; Z79.82 Long term (current) use of aspirin; Z79.84 Long term (current) use of oral hypoglycemic drugs; Z79.899 Other long term (current) drug therapy; Z87.891 Personal history of nicotine dependence
CPT/HCPCS: 74018; 96374; 96375; 99284; J1170; J1885; J2405; J7042